=== PATIENT | female | born 1980 | race Caucasian/White ===

== ENCOUNTER 2021-12-25 14:31 | Outpatient (CLI) | payer OTHER ==
[2021-12-25 15:23] LABS: Hemoglobin 13.1 g/dL (12.0-15.5); Mean Corpuscular HGB CONC 35.6 g/dL (32.0-36.0); Mean Corpuscular Hemoglobin 30.7 pg (27.0-33.0); Mean Corpuscular Volume 86.2 fl (81.6-98.3); Mean Platelet Volume 8.9 fl (7.4-10.4); Platelet Count 227 10x3/uL (150-450); Red Blood Cell (RBC) Count 4.27 10x6/uL (3.90-5.03); White Blood Cell (WBC) Count 6.2 10x3/uL (3.5-10.5)
[2021-12-25 15:43] LABS: BHCG - Serum Negative (NEGATIVE); Pregs Control Background? CLEAR/WHITE (CLR/WHITE); Pregs Control Bar Appear? YES (CONTROL BAR)
== END 2021-12-25 14:32 | disposition home or self-care (01) ==
LOC: CSHLAB 14:31
PROVIDERS: ATTEND Obstetrics & Gynecology
DX: Z01.812 Encounter for preprocedural laboratory examination (principal); Z20.822 Contact with and (suspected) exposure to COVID-19
CPT/HCPCS: 84703; 85027; 86850; 86900; 86901; U0003; U0005

== ENCOUNTER 2021-12-30 05:49 | Day surgery (SDC) | payer OTHER ==
[2021-12-25 15:23] LABS: Hemoglobin 13.1 g/dL (12.0-15.5); Mean Corpuscular HGB CONC 35.6 g/dL (32.0-36.0); Mean Corpuscular Hemoglobin 30.7 pg (27.0-33.0); Mean Corpuscular Volume 86.2 fl (81.6-98.3); Mean Platelet Volume 8.9 fl (7.4-10.4); Platelet Count 227 10x3/uL (150-450); Red Blood Cell (RBC) Count 4.27 10x6/uL (3.90-5.03); White Blood Cell (WBC) Count 6.2 10x3/uL (3.5-10.5)
[2021-12-25 15:43] LABS: BHCG - Serum Negative (NEGATIVE); Pregs Control Background? CLEAR/WHITE (CLR/WHITE); Pregs Control Bar Appear? YES (CONTROL BAR)
[2021-12-26 13:28] VITALS: BMI 28.3
[2021-12-30] MEDS ORDERED: Gabapentin 300 MG CAP ONE (06:21)
[2021-12-30] MEDS ORDERED: Lidocaine 1% MPF 2 ML VIAL ONE (06:21)
[2021-12-30] MEDS ORDERED: CeleCOXIB 100 MG CAP ONE (06:21)
[2021-12-30] MEDS ORDERED: Famotidine/PF 20 mg/2ml Vial ONE (06:22)
[2021-12-30] MEDS ORDERED: EPINEPHrine 1 MG/ML AMP ONE (06:38)
[2021-12-30] MEDS ORDERED: Bupivacaine PF 0.5% 30 ML VIAL ONE (06:39)
[2021-12-30] MEDS ORDERED: Methylene Blue 50 MG/10 ML AMPUL ONE (06:46)
[2021-12-30] MEDS ORDERED: Dexamethasone 4 mg/ml Vial ONE (07:25)
[2021-12-30] MEDS ORDERED: PROPOFOL 20 ML ONE ×2 (07:25→09:53)
[2021-12-30] MEDS ORDERED: Lidocaine 1% PF 5 ML VIAL ONE (07:25)
[2021-12-30] MEDS ORDERED: Ondansetron PF 4 MG/2 ML Vial ONE (07:25)
[2021-12-30] MEDS ORDERED: Rocuronium Bromide 10 MG/ML (10ML VIAL) ONE (07:25)
[2021-12-30] MEDS ORDERED: CEFAZOLIN 1 GM VIAL ONE (07:30)
[2021-12-30] MEDS ORDERED: Fentanyl 250 MCG/5 ML VIAL ONE (08:36)
[2021-12-30] MEDS ORDERED: ePHEDrine Sulfate 50 MG/10 ML VIAL ONE (08:43)
[2021-12-30] MEDS ORDERED: Ropivacaine 0.2% 550 ML 750 ML NERVE BLCK SCH (09:00)
[2021-12-30] MEDS ORDERED: Glycopyrrolate 0.2 MG/ML 5 ML SYRINGE ONE (09:14)
[2021-12-30] MEDS ORDERED: SUGAMMADEX SODIUM 200 MG/2 ML VIAL ONE (09:52)
== END 2021-12-30 17:05 | disposition home or self-care (01) ==
LOC: CSHSDC 05:49
PROVIDERS: ATTEND Obstetrics & Gynecology
PROC: 0UT94ZZ Resection of Uterus, Percutaneous Endoscopic Approach (ICD-10-PCS; principal; 2021-12-30)
PROC: 0UT74ZZ Resection of Bilateral Fallopian Tubes, Percutaneous Endoscopic Approach (ICD-10-PCS; principal; 2021-12-30)
DX: D25.9 Leiomyoma of uterus, unspecified (principal); N80.0 Endometriosis of uterus; Z91.013 Allergy to seafood
CPT/HCPCS: 84703; 85027; 86850; 86900; 86901; 88307; A4306; J0171; J0690; J1100; J2405; J2704; J2795; J3010; Q9968; S0020; S0028; U0003; U0005